=== PATIENT | male | born 1995 | race African-American/Black ===

== ENCOUNTER 2021-01-14 18:41 | Emergency (ER) | payer OTHER ==
[2021-01-14] MEDS ORDERED: IBU600 MG PO (19:46)
[2021-01-14] MEDS ORDERED: CLEOCIN HCL300 MG PO (19:46)
[2021-01-14] MEDS ORDERED: BACTRIM DS TAB1 EACH PO (19:46)
[2021-01-15] MEDS ORDERED: BACTROBAN OINT22 GM EXT (20:22)
== END 2021-01-14 19:58 | disposition home or self-care (01) ==
LOC: ER1 18:41
DX: N49.2 Inflammatory disorders of scrotum (principal); F17.210 Nicotine dependence, cigarettes, uncomplicated
CPT/HCPCS: 55100; 87070; 87205; 99283

== ENCOUNTER 2021-01-15 19:28 | Emergency (ER) | payer OTHER ==
[~2021-01-15 19:28] MED LIST: BACTRIM DS TAB1 EACH PO; CLEOCIN HCL300 MG PO; IBU600 MG PO
[2021-01-15] MEDS ORDERED: BACTROBAN OINT22 GM EXT (20:22)
== END 2021-01-15 21:07 | disposition home or self-care (01) ==
LOC: ER1 19:28
DX: Z48.817 Encounter for surgical aftercare following surgery on the skin and subcutaneous tissue (principal); F17.210 Nicotine dependence, cigarettes, uncomplicated
CPT/HCPCS: 99282